=== PATIENT | female | born 1985 | race Caucasian/White ===

== ENCOUNTER → 2016-11-08 | Outpatient (CLI) | payer OTHER ==
--- NOTE | 2016-11-08 11:15 | DX ---
Left Foot, Three Views Indication: Trauma. Pain. Findings: The normally mineralized bones are anatomically aligned. No acute fracture. Joint spaces are normal. Impression: Negative. No acute fracture.
== END ==
LOC: BMCIMAGING 10:24
PROVIDERS: ATTEND Podiatrist Foot & Ankle Surgery
DX: M79.672 Pain in left foot (principal)

== ENCOUNTER → 2016-11-22 | Outpatient (CLI) | payer OTHER ==
--- NOTE | 2016-11-22 16:16 | DX ---
Left Foot , 3 weightbearing views History: Pain post trauma November 07, 2016, midfoot swelling, evaluate for possible stress fracture, S [id number]. Comparison: November 08, 2016 Findings: No fracture or dislocation is identified. No periosteal reaction, focal osteopenia or scler osis. No evidence for arthritis. Impression: No source for midfoot pain identified. If symptoms persist, despite a period of conservat jazzmine therapy, then consider MRI to look for occult bone marrow edema or other soft tissue pathology.
== END ==
LOC: BMCIMAGING 14:49
PROVIDERS: ATTEND Podiatrist Foot & Ankle Surgery
DX: M79.672 Pain in left foot (principal)

== ENCOUNTER → 2018-10-24 | Outpatient (CLI) | payer OTHER | LOC: BMCIMAGING 17:15 | PROVIDERS: ATTEND Family Medicine | DX: S99.922A Unspecified injury of left foot, initial encounter (principal) ==